=== PATIENT | female | born 2000 | race Caucasian/White ===

== ENCOUNTER 2021-08-28 13:55 | Emergency (ER) | payer OTHER, SELFPAY ==
[2021-08-28 13:59] VITALS: BP 121/73; PULSE 64; RESP 16; TEMP 36.7; O2SAT 100
[2021-08-28 14:59] LABS: Add Manual Diff / Slide Review NO; Basophils Absolute Auto 100 /uL (0-100); Eosinophils Absolute Auto 100 /uL (0-450); Eosinophils Percent Auto 2.7 % (2-4); Hemoglobin 12.7 g/dL (12.0-16.0); Lymphocytes Absolute Auto 2100 /uL (1100-4500); Lymphocytes Percent Auto 41.8 % (25-40); Mean Corpuscular HGB Conc 34.3 % (30-36); Mean Corpuscular Hemoglobin 30.1 PG (26-34); Mean Corpuscular Volume 87.7 fL (80-100); Monocytes Absolute Auto 500 /uL (0-900); Monocytes Percent Auto 10.7 % (3-14); Neutrophils Absolute Auto 2100 /uL (1500-7000); Neutrophils Percent Auto 43.8 % (50-75); Platelet Count 155 X10^3/uL (150-400); Red Blood Cell Count 4.22 X10^6/uL (4.0-5.2); Red Cell Distribution Width 12.9 % (11.6-14.8); White Blood Cell Count 4.9 X10^3/uL (4.5-11.0)
--- NOTE | 2021-08-28 15:06 | ED_ITS ---
HPI - Abdominal Pain <Brandon Naqvi PA-C - Last Filed: 08/28/21 20:18> General Chief Complaint: Abdominal Pain Stated Complaint: Abd pain- can't keep food down Time Seen by Provider: 08/28/21 14:23 Source: patient Mode of arrival: Ambulatory History of Present Illness HPI narrative: 20-year-old female with past medical history migraine, thyroid derangements presents to the ED with 5 days of headache, abdominal pain, nausea, vomiting. Patient states that she normally gets migraines but respond reasonably well to Advil. However, this time around her migraine has been accompanied by nausea, vomiting, abdominal pain. Patient reports photophobia which is normal with her migraines. Patient denies any visual disturbances. Patient denies fever, chills, neck pain, neck stiffness, chest pain, shortness of breath, cough, lightheadedness, dizziness, syncope, tingling, numbness, weakness. Patient reports a 6/10 headache in the ED. Patient last took Advil last night. Patient reports that the headache is in the bilateral restoration area. Patient reports that the abdominal pain is generalized and moves around. Patient endorses diarrhea for the last 3 days. Denies hematochezia, melena, hematemesis, coffee-ground emesis. Patient states that she was diagnosed with some hypo and hyperthyroidism as a result of which she does not have periods. Patient denies taking any medication for it. Patient also states that she might have a coagulopathy that she might have inherited from her mother who had a stroke, however she is not sure what her results were. Patient endorses prior history of GERD, but has not recently taken any antacids. Related Data Allergies Allergy/AdvReac Type Severity Reaction Status Date / Time Penicillins Allergy Verified 08/28/21 14:20 Review of Systems <Brandon Naqvi PA-C - Last Filed: 08/28/21 20:18> Review of Systems ROS Unobtainable: All systems reviewed & are unremarkable except as noted in HPI and below Constitutional Constitutional: Denies chills, Denies fatigue, Denies fever(s), Denies frequent falls, Reports headache(s), Denies lethargy and Denies weakness Eyes Eyes: Denies change in vision, Denies eye discharge, Denies irritation and Denies loss of vision ENT Ears, Nose, Mouth, and Throat: Denies change in voice, Denies dizziness, Reports headache(s), Denies neck pain, Denies sore throat and Denies throat swelling Cardiovascular Cardiovascular: Denies chest pain, Denies irregular heart rhythm, Denies lightheadedness, Denies palpitations, Denies dyspnea, Denies dyspnea on exertion and Denies orthopnea Respiratory Respiratory: Denies cough, Denies dyspnea, Denies dyspnea on exertion and Denies wheezing Gastrointestinal Gastrointestinal: Reports abdominal pain, Denies change in bowel habits, Reports diarrhea, Reports nausea and Reports vomiting Genitourinary Genitourinary: Denies hematuria, Denies flank pain, Denies urinary incontinence and Denies urinary urgency Musculoskeletal Musculoskeletal: Denies back pain, Denies muscle weakness, Denies neck pain, Denies numbness and Denies tingling Integumentary/Breasts Skin/Breast: Denies pruritus, Denies erythema, Denies rash and Denies wounds Neurologic Neurologic: Denies behavioral changes, Denies confusion, Denies dizziness, Denies frequent falls, Reports headache(s), Denies loss of vision, Denies numbness, Denies tingling and Denies weakness Psychiatric Psychiatric: Denies anxiety, Denies behavioral changes, Denies confusion, Denies depression, Denies homicidal ideation and Denies suicidal ideation Endocrine Endocrine: Denies fatigue, Denies flushing and Denies palpitations Hematologic/Lymphatic Hematologic/Lymphatic: Denies easy bruising Allergic/Immunologic Allergic/Immunologic: Denies urticaria, Denies throat swelling and Denies wheezing Patient History <Brandon Naqvi PA-C - Last Filed: 08/28/21 20:18> Social History Smoking Status: Current every day smoker Smoking Status: Current every day smoker Exam <Brandon Naqvi PA-C - Last Filed: 08/28/21 20:18> Initial Vital Signs Initial Vital Signs: Vital Signs Temperature 98.1 F 08/28/21 13:59 Pulse Rate 64 08/28/21 13:59 Respiratory Rate 16 08/28/21 13:59 Blood Pressure 121/73 08/28/21 13:59 Pulse Oximetry 100 08/28/21 13:59 Const General: cooperative, healthy appearing and comfortable [facility] Head: normal to inspection, normocephalic and atraumatic Ears: hearing grossly normal bilaterally Nose: external nose normal Face and sinus: normal facial exam Mouth: oral mucosae normal Teeth and gingiva: dentition normal Throat: posterior oropharynx normal Eyes General: appearance normal, both eyes and all related structures Neck Neck: normal visual inspection, no meningeal signs, trachea midline, No lymphadenopathy, No positive Brudzinski's sign and No positive Kernig's sign Chest Chest: normal inspection of the chest Resp Effort & Inspection: normal respiratory effort Auscultation: clear to auscultation bilaterally Cardio Rate: regular rate Rhythm: regular rhythm GI Inspection: normal to inspection Other: Abdomen is soft, nondistended. Tenderness to palpation in the epigastric region. No CVA tenderness. General: No CVA tenderness Skin General: no rashes or lesions noted Neuro General: patient alert, patient awake and patient oriented x3 Other: PERRLA. CN 1 through 12 intact bilaterally. Gait normal. Negative [id number], negative pronator drift, negative rapid alternating movements. Negative Romberg. Strength and sensation intact. Full range of motion. Extrem General: normal to inspection <Mary Magdaleno DO - Last Filed: 08/29/21 08:08> Initial Vital Signs Initial Vital Signs: Vital Signs Temperature 98.1 F 08/28/21 13:59 Pulse Rate 64 08/28/21 13:59 Respiratory Rate 16 08/28/21 13:59 Blood Pressure 121/73 08/28/21 13:59 Pulse Oximetry 100 08/28/21 13:59 Course <Brandon Naqvi PA-C - Last Filed: 08/28/21 20:18> Orders Ordered: Discontinued Medications Acetaminophen (Acetaminophen 325 Mg Tablet) 975 mg PO NOW ONE Stop: 08/28/21 15:04 Last Admin: 08/28/21 15:40 Dose: 975 mg Documented by: LD Al Hydrox/Mg Hydrox/Simethicone 20 ml/ Lidocaine HCl 15 ml 0 ml PO NOW ONE Stop: 08/28/21 15:05 Last Admin: 08/28/21 15:41 Dose: 35 ml Documented by: LD Famotidine (Famotidine 20 Mg/2 Ml Vial) 20 mg IV NOW CRISTY Last Admin: 08/28/21 15:47 Dose: 20 mg Documented by: DL Sodium Chloride (Normal Saline 0.9%) 1,000 mls @ 1,000 mls/hr IV BOLUS ONE Stop: 08/28/21 16:02 Last Infusion: 08/28/21 17:01 Dose: 0 mls/hr Documented by: Admin: 08/28/21 15:43 Dose: 1,000 mls/hr Documented by: LD Ketorolac Tromethamine (Ketorolac 30 Mg/Ml Vial) 15 mg IV NOW ONE Stop: 08/28/21 15:04 Last Admin: 08/28/21 15:43 Dose: 15 mg Documented by: LD Metoclopramide HCl (Metoclopramide 10 Mg/2 Ml Inj) 10 mg IV NOW ONE Stop: 08/28/21 15:04 Last Admin: 08/28/21 15:43 Dose: 10 mg Documented by: LD Ondansetron HCl (Ondansetron 4 Mg/2 Ml Inj) 4 mg IV NOW ONE Stop: 08/28/21 14:27 Last Admin: 08/28/21 17:00 Dose: Not Given Documented by: LD Vital Signs Vital signs: Vital Signs - 8 hr 08/28/21 13:59 08/28/21 17:04 Temperature 98.1 F Pulse Rate 64 67 Respiratory Rate 16 18 Blood Pressure 121/73 114/80 Pulse Oximetry 100 99 <Mary Magdaleno, - Last Filed: 08/29/21 08:08> Orders Ordered: Discontinued Medications Acetaminophen (Acetaminophen 325 Mg Tablet) 975 mg PO NOW ONE Stop: 08/28/21 15:04 Last Admin: 08/28/21 15:40 Dose: 975 mg Documented by: LD Al Hydrox/Mg Hydrox/Simethicone 20 ml/ Lidocaine HCl 15 ml 0 ml PO NOW ONE Stop: 08/28/21 15:05 Last Admin: 08/28/21 15:41 Dose: 35 ml Documented by: LD Famotidine (Famotidine 20 Mg/2 Ml Vial) 20 mg IV NOW CRISTY Last Admin: 08/28/21 15:47 Dose: 20 mg Documented by: LD Sodium Chloride (Normal Saline 0.9%) 1,000 mls @ 1,000 mls/hr IV BOLUS ONE Stop: 08/28/21 16:02 Last Infusion: 08/28/21 17:01 Dose: 0 mls/hr Documented by: Admin: 08/28/21 15:43 Dose: 1,000 mls/hr Documented by: LD Ketorolac Tromethamine (Ketorolac 30 Mg/Ml Vial) 15 mg IV NOW ONE Stop: 08/28/21 15:04 Last Admin: 08/28/21 15:43 Dose: 15 mg Documented by: LD Metoclopramide HCl (Metoclopramide 10 Mg/2 Ml Inj) 10 mg IV NOW ONE Stop: 08/28/21 15:04 Last Admin: 08/28/21 15:43 Dose: 10 mg Documented by: LD Ondansetron HCl (Ondansetron 4 Mg/2 Ml Inj) 4 mg IV NOW ONE Stop: 08/28/21 14:27 Last Admin: 08/28/21 17:00 Dose: Not Given Documented by: LD Vital Signs Vital signs: Vital Signs - 8 hr 08/28/21 13:59 08/28/21 17:04 Temperature 98.1 F Pulse Rate 64 67 Respiratory Rate 16 18 Blood Pressure 121/73 114/80 Pulse Oximetry 100 99 MDM - Abdominal Pain <Brandon Naqvi PA-C - Last Filed: 08/28/21 20:18> Lab Data Lab results narrative: Labs within normal limits. UA negative. HCG negative. Result diagrams: 08/28/21 14:50 08/28/21 14:50 Labs: Lab Results 08/28/21 08/28/21 08/28/21 Range/Units 14:50 14:50 15:20 WBC 4.9 (4.5-11.0) X10^3/uL RBC 4.22 (4.0-5.2) X10^6/uL Hgb 12.7 (12.0-16.0) g/dL Hct 37.0 (36-46) % MCV 87.7 (80-100) fL MCH 30.1 (26-34) PG MCHC 34.3 (30-36) % RDW 12.9 (11.6-14.8) % Plt Count 155 (150-400) X10^3/uL Neut % (Auto) 43.8 L (50-75) % Lymph % (Auto) 41.8 H (25-40) % Rolette % (Auto) 10.7 (3-14) % Eos % (Auto) 2.7 (2-4) % Baso % (Auto) 1.0 (0-2) % Neut # (Auto) 2100 (2047-0557) /uL Lymph # (Auto) 2100 (6451-3613) /uL Rolette # (Auto) 500 (0-900) /uL Eos # (Auto) 100 (0-450) /uL Baso # (Auto) 100 (0-100) /uL Sodium 139 (137-145) mmol/L Potassium 4.2 (3.4-5.1) mmol/L Chloride 103 (98-107) mmol/L Carbon Dioxide 27 (22-32) mmol/L BUN 12 (7-17) mg/dL Creatinine 0.62 (0.52-1.04) mg/dL Estimated GFR > 60.0 (>60) mL/min BUN/Creatinine Ratio 19.4 (6-22) Glucose 90 (70-100) mg/dL Calcium 9.5 (8.4-10.2) mg/dL Total Bilirubin 0.5 (0.2-1.3) mg/dL AST 32 (14-36) IU/L ALT 25 (<35) IU/L Alkaline Phosphatase 40 (38-126) U/L Total Protein 7.9 (6.3-8.2) g/dL Albumin 4.9 (3.5-5.0) g/dL Globulin 3.0 (1.7-4.1) g/dL Albumin/Globulin Ratio 1.6 (1.0-2.8) Lipase 94 (23-300) U/L SARS-CoV-2 (PCR) Negative (Negative) Point of care testing: Point of Care Testing Test Results Negative Urine Dip Bedside Urine Glucose Negative Bedside Urine Bilirubin - Negative Bedside Urine Ketone - Negative Urine Specific Quinn 1.020 Bedside Urine Occult Blood - Negative Bedside Urine pH 6.5 Bedside Urine Protein - Negative Bedside Urine Urobilinogen - Negative Bedside Urine Nitrite - Negative Bedside Urine Leukocytes - Negative Esterase MDM Narrative Medical decision making narrative: 20-year-old female with past medical history migraine, thyroid derangements presents to the ED with 5 days of headache, abdominal pain, nausea, vomiting. Patient states that she normally gets migraines but respond reasonably well to Advil. Concern for migraine versus tension headache versus GERD versus gastritis versus . No headache red flag symptoms, neuro exam normal. Abdominal exam was benign. Will order labs, lipase, UA, hCG. Will treat migraine with IV fluids, Toradol, Tylenol, Reglan. Will treat abdominal symptoms with GI cocktail, Pepcid. Will reassess. Patient's workup was negative. Patient's headache improved to 2/10 with medications. Patient's abdominal pain improved with GI cocktail, Pepcid. Discussed ED return precautions with patient, discharged home. <Mary Magdaleno, DO - Last Filed: 08/29/21 08:08> Lab Data Labs: Lab Results 08/28/21 08/28/21 08/28/21 Range/Units 14:50 14:50 15:20 WBC 4.9 (4.5-11.0) X10^3/uL RBC 4.22 (4.0-5.2) X10^6/uL Hgb 12.7 (12.0-16.0) g/dL Hct 37.0 (36-46) % MCV 87.7 (80-100) fL MCH 30.1 (26-34) PG MCHC 34.3 (30-36) % RDW 12.9 (11.6-14.8) % Plt Count 155 (150-400) X10^3/uL Neut % (Auto) 43.8 L (50-75) % Lymph % (Auto) 41.8 H (25-40) % Rolette % (Auto) 10.7 (3-14) % Eos % (Auto) 2.7 (2-4) % Baso % (Auto) 1.0 (0-2) % Neut # (Auto) 2100 (1915-0074) /uL Lymph # (Auto) 2100 (6951-0081) /uL Rolette # (Auto) 500 (0-900) /uL Eos # (Auto) 100 (0-450) /uL Baso # (Auto) 100 (0-100) /uL Sodium 139 (137-145) mmol/L Potassium 4.2 (3.4-5.1) mmol/L Chloride 103 (98-107) mmol/L Carbon Dioxide 27 (22-32) mmol/L BUN 12 (7-17) mg/dL Creatinine 0.62 (0.52-1.04) mg/dL Estimated GFR > 60.0 (>60) mL/min BUN/Creatinine Ratio 19.4 (6-22) Glucose 90 (70-100) mg/dL Calcium 9.5 (8.4-10.2) mg/dL Total Bilirubin 0.5 (0.2-1.3) mg/dL AST 32 (14-36) IU/L ALT 25 (<35) IU/L Alkaline Phosphatase 40 (38-126) U/L Total Protein 7.9 (6.3-8.2) g/dL Albumin 4.9 (3.5-5.0) g/dL Globulin 3.0 (1.7-4.1) g/dL Albumin/Globulin Ratio 1.6 (1.0-2.8) Lipase 94 (23-300) U/L SARS-CoV-2 (PCR) Negative (Negative) Point of care testing: Point of Care Testing Test Results Negative Urine Dip Bedside Urine Glucose Negative Bedside Urine Bilirubin - Negative Bedside Urine Ketone - Negative Urine Specific Quinn 1.020 Bedside Urine Occult Blood - Negative Bedside Urine pH 6.5 Bedside Urine Protein - Negative Bedside Urine Urobilinogen - Negative Bedside Urine Nitrite - Negative Bedside Urine Leukocytes - Negative Esterase Discharge Plan Departure Patient Disposition: Home Clinical Impression: Headache Instructions: DI for Headache Activity Restrictions/Additional Instructions: You were evaluated in the ED today for headache and abdominal pain. Your labs, urine, COVID-19 test were all normal. Your physical exam was very reassuring. Your your symptoms are likely due to a migraine and possibly acid reflux. Your symptoms improved with the medications. You may continue to take Tylenol and ibuprofen for your headache. You can take Pepcid AC twice a day for 2 weeks for your acid reflux. Return to the ED if any of your symptoms worsen, you develop fever, chills. <Mary Magdaleno, - Last Filed: 08/29/21 08:08> Cosign ED Attending Juan Pabloature Attestation: I was immediately available in the department for consultation. Documentation has been reviewed.
[2021-08-28 15:10] LABS: Alanine Aminotransferase 25 IU/L (<35); Albumin 4.9 g/dL (3.5-5.0); Albumin Globulin Ratio 1.6 (1.0-2.8); Alkaline Phosphatase 40 U/L (38-126); Aspartate Aminotransferase 32 IU/L (14-36); BUN Creatinine Ratio 19.4 (6-22); Bilirubin Total 0.5 mg/dL (0.2-1.3); Blood Urea Nitrogen 12 mg/dL (7-17); Calcium 9.5 mg/dL (8.4-10.2); Carbon Dioxide 27 mmol/L (22-32); Chloride 103 mmol/L (98-107); Estimated Glomerular Filt Rate > 60.0 mL/min (>60); Glucose 90 mg/dL (70-100); HEMOLYSIS < 15 (0-50); Lipase 94 U/L (23-300); Potassium 4.2 mmol/L (3.4-5.1); Sodium 139 mmol/L (137-145); Total Protein 7.9 g/dL (6.3-8.2)
[2021-08-28] MEDS: ACETAMINOPHEN 325 MG TABLET 975 MG PO (15:40)
[2021-08-28] MEDS: MAG HYDROX/ALUMINUM/SIMETH SUS 20 ML, LIDOCAINE VISCOUS 2% 15 ML PO (15:41)
[2021-08-28] MEDS: METOCLOPRAMIDE 10 MG/2 ML INJ IV (15:43)
[2021-08-28] MEDS: SODIUM CHLORIDE 0.9% 1,000 ML 1000 ML IV (15:43)
[2021-08-28] MEDS: KETOROLAC 30 MG/ML VIAL 15 MG IV (15:43)
[2021-08-28] MEDS: FAMOTIDINE 20 MG/2 ML VIAL IV (15:47)
[2021-08-28 16:36] LABS: COVID19 -Nasal RAPID Negative (Negative)
[2021-08-28 17:04] VITALS: BP 114/80; PULSE 67; RESP 18; O2SAT 99
== END 2021-08-28 17:05 | disposition home or self-care (01) ==
PROVIDERS: Emergency Medicine; Emergency Provider Student in an Organized Health Care Education/Training Program
DX: R51.9 Headache, unspecified (principal); R10.13 Epigastric pain; R11.2 Nausea with vomiting, unspecified; Z20.822 Contact with and (suspected) exposure to COVID-19
CPT/HCPCS: 36415; 80053; 81003; 81025; 83690; 85025; 87635; 96361; 96374; 96375; 99284; C9803; J1885; J2765

== ENCOUNTER → 2022-03-18 16:02 | Outpatient (CLI) | payer OTHER, SELFPAY | PROVIDERS: PCP Physician Assistant Medical; Visit Provider Family Medicine | DX: J02.9 Acute pharyngitis, unspecified (principal) | CPT/HCPCS: 87070 ==

== ENCOUNTER 2022-05-12 10:11 | Emergency (ER) | payer OTHER, SELFPAY ==
[2022-05-12 10:20] VITALS: BP 112/77; PULSE 67; RESP 16; TEMP 36.6; O2SAT 100; BMI 24.2
--- NOTE | 2022-05-12 10:55 | ED_ITS ---
HPI - Female Genitourinary General Chief complaint: Vaginal Bleeding Stated complaint: HEAVY MENSTURAL PERIOD Time Seen by Provider: 05/12/22 10:48 Source: patient Mode of arrival: Ambulatory History of Present Illness HPI Narrative: 21-year-old female nonsmoker with history of hypothyroid presents with her significant other and a chief complaint of a few days of heavy vaginal bleeding and pelvic cramping. She states that she has not had a menstrual cycle in many years and has been told this is due to her thyroid condition. She states that she is been using tampons and pads and has been saturating them about 1 per hour for most of the time. She is not necessarily dizzy but feels fatigued. She is had no fever or chills. She denies runny nose, sore throat or cough and has no chest pain or shortness of breath. She does not take any blood thinners and denies any change in bowel or urinary habits Related Data Previous Rx's Medication Instructions Recorded azithromycin 250 mg tablet See Rx Instructions PO .COMPLEX #6 03/14/22 tabs cephalexin 500 mg capsule 500 mg PO QID #28 caps 03/18/22 prednisone 20 mg tablet 40 mg PO DAILY #10 tabs 03/18/22 medroxyprogesterone 10 mg tablet See Rx Instructions .Route 05/12/22 .COMPLEX #80 tabs Allergies Allergy/AdvReac Type Severity Reaction Status Date / Time Penicillins Allergy Verified 03/18/22 15:41 Review of Systems Review of Systems Narrative: GENERAL: See HPI HEENT: Denies sinus pain, ear pain, sore throat, difficulty swallowing, dizziness. RESPIRATORY: Denies dyspnea, cough, wheezing, hemoptysis, sputum. CARDIOVASCULAR: Denies chest pain, palpitations, orthopnea, edema, GASTROINTESTINAL: Denies nausea, vomiting, abdominal pain, diarrhea, constipation, melena. : See HPI MUSCULOSKELETAL: denies weakness, joint pain, or bony pain SKIN: Denies rash, skin lesions, or other NEUROLOGIC: Denies weakness, headache, numbness, change in speech, confusion, seizures, incoordination. PSYCHIATRIC: No concerning psychosocial issues. 12 point review of systems is negative except for those stated above Patient History Medical History Allergies Anemia Anorexia nervosa Anxiety Depression Headache Hyperthyroidism Hypothyroidism Infertility Migraines Seizures (~2015) Wears glasses Family History Mother Blood clotting disorder Paralysis Stroke Seizures Brother Depression Anger Mental health problem Brother Depression Anger Anxiety Mental health problem Exam Narrative Exam Narrative: GENERAL: [21] year old patient appears stated age. Well-developed patient, in mild distress. HEAD: Atraumatic. Normocephalic. EYES: Pupils equal round and reactive. Extraocular motions intact. No scleral icterus. No injection or drainage. ENT: Nose without bleeding, purulent drainage. Throat without erythema, tonsillar hypertrophy or exudate. Airway patent. NECK: Trachea midline. Non tender CARDIOVASCULAR: Regular rate and rhythm without murmurs, gallops, or rubs. RESPIRATORY: Clear to auscultation. Breath sounds equal bilaterally. No wheezes, rales, or rhonchi. GASTROINTESTINAL: Abdomen soft, non-tender, nondistended. PELVIC: Performed with patient permission and female nursing fender mechanic at the bedside. Very minimal dark blood via closed cervical os noted. No vaginal lacerations or lesions noted no masses EXTREMITIES: No edema or joint tenderness. BACK: Nontender without deformity or crepitance. No flank tenderness. NEURO: AOx3. SKIN: No rash or erythema of visible areas Initial Vital Signs Initial Vital Signs: Vital Signs Temperature 97.8 F 05/12/22 10:20 Pulse Rate 67 05/12/22 10:20 Respiratory Rate 16 05/12/22 10:20 Blood Pressure 112/77 05/12/22 10:20 Pulse Oximetry 100 05/12/22 10:20 Oxygen Delivery Method 05/12/22 10:20 Course Course Course Narrative: Minimal if any bleeding during pelvic ultrasound Orders Ordered: ED Orders 05/12/22 10:52 Complete Blood Count AUTO DIFF Stat Comprehensive Metabolic Panel Stat Type and Screen Stat 05/12/22 11:00 Urinalysis and Microscopic Stat 05/12/22 11:23 US pelvic complete Stat Consultations Consultation #1: Discussed with on-call OB, recommends their typical course medroxyprogesterone and follow-up Vital Signs Vital signs: Vital Signs - 8 hr 05/12/22 10:20 Temperature 97.8 F Pulse Rate 67 Respiratory Rate 16 Blood Pressure 112/77 Pulse Oximetry 100 Oxygen Delivery Method Room Air MDM - Female Genitourinary Lab Data Result diagrams: 05/12/22 10:52 05/12/22 10:52 Labs: Lab Results 05/12/22 05/12/22 05/12/22 Range/Units 10:52 10:52 10:52 WBC 5.0 (4.5-11.0) X10^3/uL RBC 4.06 (4.0-5.2) X10^6/uL Hgb 12.4 (12.0-16.0) g/dL Hct 35.7 L (36-46) % MCV 88.0 (80-100) fL MCH 30.6 (26-34) PG MCHC 34.8 (30-36) % RDW 13.5 (11.6-14.8) % Plt Count 126 L (150-400) X10^3/uL Neut % (Auto) 68.5 (50-75) % Lymph % (Auto) 16.4 L (25-40) % [place] % (Auto) 12.1 (3-14) % Eos % (Auto) 2.6 (2-4) % Baso % (Auto) 0.4 (0-2) % Neut # (Auto) 3400 (4926-2696) /uL Lymph # (Auto) 800 L (7808-8835) /uL [place] # (Auto) 600 (0-900) /uL Eos # (Auto) 100 (0-450) /uL Baso # (Auto) 0 (0-100) /uL Sodium 141 (137-145) mmol/L Potassium 3.7 (3.4-5.1) mmol/L Chloride 105 (98-107) mmol/L Carbon Dioxide 28 (22-32) mmol/L BUN 10 (7-17) mg/dL Creatinine 0.66 (0.52-1.04) mg/dL Estimated GFR > 60 (>60) mL/min BUN/Creatinine Ratio 15.2 (6-22) Glucose 53 L (70-100) mg/dL Calcium 9.3 (8.4-10.2) mg/dL Total Bilirubin 0.6 (0.2-1.3) mg/dL AST 33 (14-36) IU/L ALT 24 (<35) IU/L Alkaline Phosphatase 48 (38-126) U/L Total Protein 8.1 (6.3-8.2) g/dL Albumin 4.7 (3.5-5.0) g/dL Globulin 3.4 (1.7-4.1) g/dL Albumin/Globulin Ratio 1.4 (1.0-2.8) Urine Color Urine Appearance Urine pH (4.5-8.0) Ur Specific [place] (1.000-1.035) Urine Protein (Negative) Urine Glucose (UA) (Negative) g/dL Urine Ketones (NEGATIVE) Urine Occult Blood (Negative) Urine Nitrate (Negative) Urine Bilirubin (NEGATIVE) Urine Urobilinogen (0.2) E.U./dL Ur Leukocyte Esterase (NEGATIVE) Urine RBC (0-5/HPF) Urine WBC (0-5/HPF) Ur Squamous Epith Cells (0-5/HPF) Urine Bacteria (None) Ur Culture Indicated? Blood Type A Negative Antibody Screen Negative 05/12/22 Range/Units 11:00 WBC (4.5-11.0) X10^3/uL RBC (4.0-5.2) X10^6/uL Hgb (12.0-16.0) g/dL Hct (36-46) % MCV (80-100) fL MCH (26-34) PG MCHC (30-36) % RDW (11.6-14.8) % Plt Count (150-400) X10^3/uL Neut % (Auto) (50-75) % Lymph % (Auto) (25-40) % [place] % (Auto) (3-14) % Eos % (Auto) (2-4) % Baso % (Auto) (0-2) % Neut # (Auto) (4942-9116) /uL Lymph # (Auto) (8087-1939) /uL [place] # (Auto) (0-900) /uL Eos # (Auto) (0-450) /uL Baso # (Auto) (0-100) /uL Sodium (137-145) mmol/L Potassium (3.4-5.1) mmol/L Chloride (98-107) mmol/L Carbon Dioxide (22-32) mmol/L BUN (7-17) mg/dL Creatinine (0.52-1.04) mg/dL Estimated GFR (>60) mL/min BUN/Creatinine Ratio (6-22) Glucose (70-100) mg/dL Calcium (8.4-10.2) mg/dL Total Bilirubin (0.2-1.3) mg/dL AST (14-36) IU/L ALT (<35) IU/L Alkaline Phosphatase (38-126) U/L Total Protein (6.3-8.2) g/dL Albumin (3.5-5.0) g/dL Globulin (1.7-4.1) g/dL Albumin/Globulin Ratio (1.0-2.8) Urine Color Red Urine Appearance Cloudy Urine pH 7.0 (4.5-8.0) Ur Specific [place] 1.015 (1.000-1.035) Urine Protein Trace H (Negative) Urine Glucose (UA) Negative (Negative) g/dL Urine Ketones Negative (NEGATIVE) Urine Occult Blood 3+ H (Negative) Urine Nitrate Negative (Negative) Urine Bilirubin Negative (NEGATIVE) Urine Urobilinogen 0.2 (0.2) E.U./dL Ur Leukocyte Esterase Negative (NEGATIVE) Urine RBC 30-100/hpf H (0-5/HPF) Urine WBC 0-1/hpf (0-5/HPF) Ur Squamous Epith Cells 0-1 /hpf (0-5/HPF) Urine Bacteria None seen (None) Ur Culture Indicated? Cult not indicated Blood Type Antibody Screen Point of Care Testing Test Results Negative Imaging Data US - FLOOR PLAN ADJUSTER: Radiologist's Impression: Close Pelvis Ultrasound (Signed) Brain Gallardo - 05/12/22 Launch?[place] [address] Ultrasound Report Signed Patient: Mercedes Ramsey MR#: [id number] : 2000 Acct:[id number] Age/Sex: 21 / F Date of Service: 05/12/22 Loc: ED Accession Number: [id number] ?? Procedure: US pelvic complete Ordering Provider: Brennan Craig D.O. PROCEDURE:? US PELVIC COMPLETE ? INDICATIONS:? HEAVY BLEEDING ? TECHNIQUE:? Real-time scanning was performed of the pelvic organs, with image documentation.? Additional endovaginal scanning was necessary due to incomplete visualization of the adnexal and endometrial structures by transabdominal scanning.? ? COMPARISON:? None. ? FINDINGS:? ?? Uterus:? Uterus is anteverted and normal in size at 6.7 x 4.5 x 3.9 cm. The myometrium is homogeneous. ? The endometrium measures 10.3 mm combined thickness.? Myometrium appears slightly hypervascular ? Ovaries:? Right and left ovaries measure 2.9 x 2.9 x 1.8 cm and 3.4 x 2.7 x 1.3 cm respectively.? Both ovaries have appropriate echotexture and vascularity. ? Other:? Moderate free fluid in the pelvis ? ? IMPRESSION:? ? 1. Moderate free fluid in the pelvis ? 2. Generalized uterine hypervascularity uterus could reflect uterine fibroids or generalized inflammatory change.? Approved by: Brain Gallardo M.D. on 05/12/2022 at 12:45? Discharge Plan Departure Patient Disposition: Home Clinical Impression: Abnormal vaginal bleeding Instructions: DI for Vaginal Bleeding Activity Restrictions/Additional Instructions: *You have been diagnosed with [vaginal bleeding] *What to do: *Please continue to take your regular medications as directed. [ x] New medication prescriptions sent to your pharmacy: [ [facility] in [place]] [ ] New medication written as a paper prescription [ ] No new medications given *Please follow up with your primary care provider in 2-3 days, call for an appointment. Let them know you were seen in the Emergency Department and that we ask that you be seen in follow up. We will electronically transmit a record of today's note if your PCP is in our system *If you do not have a primary care provider please contact the [facility] Resource line at [phone]. They will ask some questions about your medical history and help get you set up with a doctor in the community. *Return to Emergency Department if you should have any new, worsening or concerning symptoms Prescriptions: New medroxyprogesterone 10 mg tablet See Rx Instructions .ROUTE .COMPLEX Qty: 80 0RF Rx Instructions: 20mg PO q2 until bleeding stops or slows Then 20mg q4 x48 Then 20mg q6 x48 Then 20mg q8 x48 Then 20mg q12 x 48 Then 20mg qday x 7days No Action azithromycin 250 mg tablet See Rx Instructions PO .COMPLEX Qty: 6 0RF Rx Instructions: For 250 mg dose pack: take 500 mg today (day 1), then 250 mg for 4 days (days 2-5) PO cephalexin 500 mg capsule 500 mg PO QID Qty: 28 0RF prednisone 20 mg tablet 40 mg PO DAILY Qty: 10 0RF Referrals: Katherine Helton MD [Physician] - Rabia Burt PA-C [Primary Care Provider] - Visit Report Forms: Patient Portal/API
[2022-05-12 11:14] LABS: Add Manual Diff / Slide Review NO; Basophils Absolute Auto 0 /uL (0-100); Basophils Percent Auto 0.4 % (0-2); Eosinophils Absolute Auto 100 /uL (0-450); Eosinophils Percent Auto 2.6 % (2-4); Hematocrit 35.7 % (36-46); Hemoglobin 12.4 g/dL (12.0-16.0); Lymphocytes Absolute Auto 800 /uL (1100-4500); Lymphocytes Percent Auto 16.4 % (25-40); Mean Corpuscular HGB Conc 34.8 % (30-36); Mean Corpuscular Hemoglobin 30.6 PG (26-34); Monocytes Absolute Auto 600 /uL (0-900); Monocytes Percent Auto 12.1 % (3-14); Neutrophils Absolute Auto 3400 /uL (1500-7000); Neutrophils Percent Auto 68.5 % (50-75); Platelet Count 126 X10^3/uL (150-400); Red Blood Cell Count 4.06 X10^6/uL (4.0-5.2); Red Cell Distribution Width 13.5 % (11.6-14.8)
[2022-05-12 11:17] LABS: Appearance Urine UA CLOUDY; Bilirubin Urine UA NEGATIVE (NEGATIVE); Color Urine UA RED; Glucose Urine UA NEGATIVE (Negative); Ketones Urine UA NEGATIVE (NEGATIVE); Leukocyte Esterase Urine UA NEGATIVE (NEGATIVE); Nitrite Urine UA NEGATIVE (Negative); Occult Blood Urine UA 3+ (Negative); Protein Urine UA TRACE (Negative); Specific Gravity Urine UA 1.015 (1.000-1.035); Urobilinogen Urine UA 0.2 E.U./dL (0.2)
[2022-05-12 11:19] LABS: Bacteria Urine None Seen; Culture Indicated Urine Cult Not Indicated; RBC Urine 30-100/HPF (0-5/HPF); Squamous Epithelial Cell Urine 0-1 /HPF (0-5/HPF); WBC Urine 0-1/HPF (0-5/HPF)
--- NOTE | 2022-05-12 11:23 | DI.US.S_ITS ---
PROCEDURE: US PELVIC COMPLETE INDICATIONS: HEAVY BLEEDING TECHNIQUE: Real-time scanning was performed of the pelvic organs, with image documentation. Additional endovaginal scanning was necessary due to incomplete visualization of the adnexal and endometrial structures by transabdominal scanning. COMPARISON: None. FINDINGS: Uterus: Uterus is anteverted and normal in size at 6.7 x 4.5 x 3.9 cm. The myometrium is homogeneous. The endometrium measures 10.3 mm combined thickness. Myometrium appears slightly hypervascular Ovaries: Right and left ovaries measure 2.9 x 2.9 x 1.8 cm and 3.4 x 2.7 x 1.3 cm respectively. Both ovaries have appropriate echotexture and vascularity. Other: Moderate free fluid in the pelvis IMPRESSION: 1. Moderate free fluid in the pelvis 2. Generalized uterine hypervascularity uterus could reflect uterine fibroids or generalized inflammatory change. Approved by: Brain Gallardo M.D. on 05/12/2022 at 12:45
[2022-05-12 11:29] LABS: Alanine Aminotransferase 24 IU/L (<35); Albumin 4.7 g/dL (3.5-5.0); Albumin Globulin Ratio 1.4 (1.0-2.8); Alkaline Phosphatase 48 U/L (38-126); Aspartate Aminotransferase 33 IU/L (14-36); BUN Creatinine Ratio 15.2 (6-22); Bilirubin Total 0.6 mg/dL (0.2-1.3); Blood Urea Nitrogen 10 mg/dL (7-17); Calcium 9.3 mg/dL (8.4-10.2); Carbon Dioxide 28 mmol/L (22-32); Chloride 105 mmol/L (98-107); Estimated Glomerular Filt Rate > 60 mL/min (>60); Globulin 3.4 g/dL (1.7-4.1); Glucose 53 mg/dL (70-100); HEMOLYSIS < 15 (0-50); Potassium 3.7 mmol/L (3.4-5.1); Sodium 141 mmol/L (137-145); Total Protein 8.1 g/dL (6.3-8.2)
[2022-05-12 15:37] VITALS: BP 101/65; PULSE 72; RESP 17; O2SAT 100
== END 2022-05-12 15:48 | disposition home or self-care (01) ==
PROVIDERS: Emergency Provider Emergency Medicine; PCP Physician Assistant Medical
DX: N93.9 Abnormal uterine and vaginal bleeding, unspecified (principal)
CPT/HCPCS: 36415; 76830; 76856; 80053; 81001; 81025; 85025; 86850; 86900; 86901; 99283; 99284

== ENCOUNTER → 2022-05-22 09:15 | Outpatient (CLI) | payer OTHER, SELFPAY ==
[2022-05-22 19:29] LABS: Add Manual Diff / Slide Review NO; Basophils Absolute Auto 0 /uL (0-100); Basophils Percent Auto 0.5 % (0-2); Eosinophils Absolute Auto 100 /uL (0-450); Eosinophils Percent Auto 1.9 % (2-4); Hematocrit 34.7 % (36-46); Hemoglobin 12.2 g/dL (12.0-16.0); Lymphocytes Absolute Auto 2200 /uL (1100-4500); Lymphocytes Percent Auto 38.9 % (25-40); Mean Corpuscular Hemoglobin 30.8 PG (26-34); Mean Corpuscular Volume 88.1 fL (80-100); Monocytes Absolute Auto 600 /uL (0-900); Monocytes Percent Auto 11.2 % (3-14); Neutrophils Absolute Auto 2700 /uL (1500-7000); Neutrophils Percent Auto 47.5 % (50-75); Platelet Count 200 X10^3/uL (150-400); Red Blood Cell Count 3.94 X10^6/uL (4.0-5.2); Red Cell Distribution Width 12.9 % (11.6-14.8); White Blood Cell Count 5.7 X10^3/uL (4.5-11.0)
[2022-05-22 20:04] LABS: Alanine Aminotransferase 28 IU/L (<35); Albumin Globulin Ratio 1.6 (1.0-2.8); Alkaline Phosphatase 50 U/L (38-126); Aspartate Aminotransferase 42 IU/L (14-36); BUN Creatinine Ratio 25.4 (6-22); Bilirubin Total 0.4 mg/dL (0.2-1.3); Blood Urea Nitrogen 18 mg/dL (7-17); Calcium 9.3 mg/dL (8.4-10.2); Carbon Dioxide 21 mmol/L (22-32); Chloride 106 mmol/L (98-107); Estimated Glomerular Filt Rate > 60 mL/min (>60); Globulin 3.1 g/dL (1.7-4.1); Glucose 73 mg/dL (70-100); HEMOLYSIS < 15 (0-50); Potassium 5.2 mmol/L (3.4-5.1); Sodium 139 mmol/L (137-145); Total Protein 8.1 g/dL (6.3-8.2)
[2022-05-22 20:17] LABS: Follicle Stimulating Hormone 6.22 mIU/mL; Free T3, Triiodothyronine Free 2.97 pg/mL (2.77-5.27); Luteinizing Hormone 3.16 mIU/mL
[2022-05-22 20:18] LABS: HCG Quantitative /Beta subunit < 2.4 mIU/mL
== END ==
PROVIDERS: PCP Physician Assistant Medical; Visit Provider Physician Assistant Medical
DX: E23.7 Disorder of pituitary gland, unspecified (principal); F32.A Depression, unspecified; N93.9 Abnormal uterine and vaginal bleeding, unspecified; R20.0 Anesthesia of skin; R10.9 Unspecified abdominal pain
CPT/HCPCS: 80053; 83001; 83002; 84443; 84481; 84702; 85025; 87077; 87086; 87186